=== PATIENT | male | born 2005 | race Caucasian/White ===

== ENCOUNTER 2025-04-22 12:07 | Emergency (ER) | payer OTHER, SELFPAY ==
--- NOTE | ~2025-04-22 | US_ITS ---
EXAMINATION: US ABDOMEN LIMITED CLINICAL INFORMATION: Right upper quadrant pain. COMPARISON: None available. TECHNIQUE: Real-time imaging of the right upper quadrant abdominal viscera. FINDINGS: GALLBLADDER: The gallbladder is moderately decompressed. Gallbladder wall is not thickened. There are no gallstones. COMMON BILE DUCT: Normal in caliber measuring 0.2 cm in diameter. US/US abdomen limited IMPRESSION: Moderately decompressed gallbladder. Electronically signed by: Casa Bailey MD 04/22/2025 03:07 PM EDT
--- NOTE | 2025-04-22 13:01 | ED_ITS ---
HPI - General Adult General Chief complaint: Nausea/Vomiting/Diarrhea Stated complaint: stomach pain Time Seen by Provider: 04/22/25 18:45 Source: patient Limitations: no limitations History of Present Illness ED Provider: Desiree Flores PA-C HPI narrative: 19-year-old male presents with ongoing nausea vomiting diarrhea for a year. Pain over right upper quadrant, worse with the eating, denies fever. Denies recent travel, hospitalization, use of antibiotics. The patient has yet to see a universal winding machine operator for his symptoms. No fevers. Related Data Previous Rx's ?Medication ?Instructions ?Recorded sucralfate 100 mg/mL oral 10 ml PO QID PRN indigestion #300 04/22/25 suspension (Carafate) mL Allergies Allergy/AdvReac Type Severity Reaction Status Date / Time No Known Allergies Allergy Verified 04/22/25 13:03 Review of Systems 2 Review of Systems: Yes all other systems are reviewed and are negative Constitutional: Constitutional: Denies fatigue and Denies fever(s) Cardiovascular: Cardiovascular: Denies chest pain and Denies dyspnea Respiratory: Respiratory: Denies dyspnea Gastrointestinal: Gastrointestinal: Reports abdominal pain, Reports diarrhea, Reports nausea and Reports vomiting Endocrine: Endocrine: Denies fatigue PMFSH Past Medical History Attestation statement: The following information was validated with the patient. Social History Social History Smoked in Last 30 Days: No Use of substances other than those prescribed or required for medical reasons: No Advance Directives: No Advance Directives Information Provided: Yes Physical Exam ED Vital Signs: Vital Signs - 24 hr 04/22/25 13:02 04/22/25 18:28 04/22/25 20:16 Temperature 98.4 F 98.0 F 98.9 F Pulse Rate 87 71 76 Respiratory Rate 18 16 16 Blood Pressure 145/87 H 141/82 H 117/77 Pulse Oximetry 98 100 99 Oxygen Delivery Method Room Air Room Air Room Air BMI result Body Mass Index 19.7 Const Other: Alert Orientation/consciousness: patient oriented x3 Resp Effort & Inspection: normal respiratory effort Cardio Other: Normal peripheral perfusion GI Other: Soft nontender no guarding no distention Skin Other: Warm dry no rash Neuro General: patient oriented x3, gait normal, no focal motor deficits and CN's II- XI intact bilaterally Psych Other: Calm cooperative Course Course Course Narrative: RME, this is a rapid medical exam performed by Grady Chawla please refer to primary provider for complete H&P- 19-year-old male presents for evaluation of abdominal pain usually right-sided an upper. Symptoms started numbness 2 years ago. He reports associated nausea vomiting, diarrhea. Plan for labs, ultrasound of the right upper quadrant Medications Administered Discontinued Medications Generic Name Dose Route Start Last Admin Trade Name Annamaria PRN Reason Stop Dose Admin Sucralfate 1 gm 04/22/25 19:57 04/22/25 20:34 Sucralfate Oral Suspension 1 Gm/10 Ml Oral.Susp PO 04/22/25 19:58 1 gm ONCE ONE Administration Medical Decision Making Medical Decision Making MDM Narrative: 19-year-old male presents with ongoing nausea vomiting diarrhea for a year. Pain over right upper quadrant, worse with the eating, denies fever. Denies recent travel, hospitalization, use of antibiotics. The patient has yet to see a universal winding machine operator for his symptoms. No fevers. Problem: Chronic abdominal pain with diarrhea History: Per patient I have considered the following differential diagnoses: Biliary colic, cholecystitis, gastritis, pancreatitis, IBS, C diff, traveler's diarrhea, pancreatic enzyme insufficiency Plan: The patient is here with chronic symptoms. Given distribution of discomfort I have considered underlying biliary versus gastric etiology as cause for symptoms. Screening labs were obtained including an ultrasound of the right upper quadrant, everything is unremarkable including his LFTs. Sounds as if the patient has poorly controlled acid reflux, with the diarrhea, he needs further workup as an outpatient. He has no risk factors for traveler's diarrhea or C diff. I have independently reviewed the following tests: Labs: No leukocytosis, not anemic, no electrolyte are light abnormality noted , LFTs normal Abdominal ultrasound: FINDINGS: GALLBLADDER: The gallbladder is moderately decompressed. Gallbladder wall is not thickened. There are no gallstones. COMMON BILE DUCT: Normal in caliber measuring 0.2 cm in diameter. US/US abdomen limited IMPRESSION: Moderately decompressed gallbladder. Differential Diagnosis Differential Diagnoses: The differential diagnosis associated with the presentation includes See MDM Admission/Observation Consideration of admission/observation: Escalation of care including admission/observation considered Not applicable Lab Data [facility] Lab Attestation statement: I reviewed the patient's lab results. 04/22/25 13:50 04/22/25 13:50 Labs: Lab Results 04/22/25 Range/Units 13:50 WBC 5.7 (4.8-10.8) X10*3/uL RBC 4.86 (4.60-5.80) X10*6/uL Hgb 14.9 (14.0-18.0) g/dl Hct 43.2 (42.0-52.0) % MCV 88.9 (80.0-98.0) fL MCH 30.7 (27.0-33.0) pg MCHC 34.5 (31.0-36.0) g/dl RDW 12.3 (11.0-16.0) % Plt Count 220 (160-400) X10*3/uL MPV 9.5 (9.4-12.4) fL Immature Gran % (Auto) 0.2 (0.0-0.4) % Neut % (Auto) 66.0 (45-73) % Lymph % (Auto) 21.6 (20-40) % [place] % (Auto) 7.4 (2-11) % Eos % (Auto) 3.2 (0-4) % Baso % (Auto) 1.6 (0-2) % Lymph # (Auto) 1.2 (1.2-4.9) X10*3/uL [place] # (Auto) 0.4 (0.1-1.2) X10*3/uL Eos # (Auto) 0.2 (0.0-0.4) X10*3/uL Baso # (Auto) 0.1 (0.0-0.2) X10*3/uL Abs Immat Gran (auto) 0.01 (0.00-0.03) X10*3/uL Absolute Neuts (auto) 3.8 (2.0-8.3) x10*3/uL Absolute Nucleated RBC 0.000 (0.0-0.012) X10*3/uL Nucleated RBC % (auto) 0.0 (0.0-0.2) /100WBC Sodium 142 (135-145) mmol/L Potassium 4.2 (3.3-5.1) mmol/L Chloride 104 (96-108) mmol/L Carbon Dioxide 30 H (22-29) mmol/L Anion Gap 12 (12-20) BUN 8 L (9-16) mg/dL Creatinine 0.84 (0.5-1.4) mg/dL Estim Creat Clear Calc 115.4 Estimated GFR > 60 Random Glucose 85 (60-115) mg/dL Calcium 9.6 (8.4-10.2) mg/dL Total Bilirubin 0.3 (0.0-1.0) mg/dL AST 29 (5-37) U/L ALT 19 (0-40) U/L Alkaline Phosphatase 54 (39-117) U/L Total Protein 7.3 (6.5-8.0) g/dL Albumin 4.9 (3.5-5.0) g/dL Lipase 20 (8-78) U/L Radiology Impression Discussion of test interpretation with radiology: I have reviewed the radiologist's reading. Discharge Plan Discharge Clinical Impression: GERD (gastroesophageal reflux disease), Diarrhea Patient Disposition: Home, Self-Care Instructions: Diet for Stomach Ulcers and Gastritis (ED), GERD (Gastroesophageal Reflux Disease) (ED), Nutrition Tips for Relief of Diarrhea (ED) Additional Instructions: All of your screening labs were normal, the ultrasound of your upper abdomen was normal as well. Your symptoms could be secondary to poorly controlled acid reflux. See home care instructions. Use the Carafate as needed for upper abdominal discomfort. Some common food triggers for poorly controlled acid reflux are anything spicy and greasy, acidic, mint, anything carbonated, alcohol, caffeine. Do not eat 3 hours before bed. Eating smaller more frequent meals throughout the day can also help deter symptoms. In regard to the diarrhea, you need an outpatient workup to determine the cause of the chronic diarrhea. You need to establish primary care so you can get to the next steps, to see a universal winding machine operator. Prescriptions: New sucralfate [Carafate] 100 mg/mL suspension 10 ml PO QID PRN (Reason: indigestion) Qty: 300 0RF Rx Instructions: swish in mouth and swallow; use after food/drink Interventions: ED Discharge Assessment Last Done: 04/22/25 21:07 Discharge Date/Time: 04/22/25 21:08 Print Language: Kiswahili
[2025-04-22 13:02] VITALS: BP 145/87; PULSE 87; RESP 18; TEMP 36.9; O2SAT 98; BMI 19.7
[2025-04-22 13:54] LABS: MANUAL DIFF FLAG NO
[2025-04-22 13:56] LABS: Hematocrit 43.2 % (42.0-52.0); Hemoglobin 14.9 g/dl (14.0-18.0); Imm Gran Abs Auto 0.01 X10*3/uL (0.00-0.03); Imm Gran Pct Auto 0.2 % (0.0-0.4); Lymphocytes Absolute Auto 1.2 X10*3/uL (1.2-4.9); Mean Corpuscular HGB Conc 34.5 g/dl (31.0-36.0); Mean Corpuscular Hemoglobin 30.7 pg (27.0-33.0); Mean Corpuscular Volume 88.9 fL (80.0-98.0); NRBC Abs Auto 0.000 X10*3/uL (0.0-0.012); NRBC Pct Auto 0.0 /100WBC (0.0-0.2); Platelet Count 220 X10*3/uL (160-400); Red Blood Count 4.86 X10*6/uL (4.60-5.80); White Blood Count 5.7 X10*3/uL (4.8-10.8)
[2025-04-22 14:12] LABS: Alanine Aminotransferase 19 U/L (0-40); Albumin Level 4.9 g/dL (3.5-5.0); Alkaline Phosphatase 54 U/L (39-117); Anion Gap 12 (12-20); Aspartate Amino Transferase 29 U/L (5-37); Blood Urea Nitrogen 8 mg/dL (9-16); Calcium 9.6 mg/dL (8.4-10.2); Carbon Dioxide 30 mmol/L (22-29); Chloride 104 mmol/L (96-108); Creatinine Clr Calc Pharmacy 115.4; Estimated Glomerular Filt Rate > 60; Lipase 20 U/L (8-78); Potassium 4.2 mmol/L (3.3-5.1); Sodium 142 mmol/L (135-145); Total Protein 7.3 g/dL (6.5-8.0)
[2025-04-22 18:28] VITALS: BP 141/82; PULSE 71; RESP 16; TEMP 36.7; O2SAT 100
[2025-04-22 20:16] VITALS: BP 117/77; PULSE 76; RESP 16; TEMP 37.2; O2SAT 99
[2025-04-22] MEDS: Sucralfate Oral Suspension 1 GM/10 ML ORAL.SUSP PO (20:34)
[2025-04-22 21:07] VITALS: BP 117/77; PULSE 76; RESP 16; TEMP 37.2; O2SAT 99
== END 2025-04-22 21:08 | disposition home or self-care (01) ==
PROVIDERS: Physician Assistant; Emergency Provider Emergency Medicine
DX: R11.2 Nausea with vomiting, unspecified (principal); R19.7 Diarrhea, unspecified; K21.9 Gastro-esophageal reflux disease without esophagitis
CPT/HCPCS: 36415; 76705; 80053; 83690; 85025; 99284

== ENCOUNTER → 2025-04-22 13:02 | Outpatient (BNV) | payer OTHER, SELFPAY | PROVIDERS: Visit Provider Radiology Diagnostic Radiology | DX: K82.8 Other specified diseases of gallbladder (principal) | CPT/HCPCS: 76705 ==

== ENCOUNTER 2025-07-25 15:40 | Emergency (ER) | payer SELFPAY ==
--- NOTE | ~2025-07-25 | XR_ITS ---
CLINICAL HISTORY: pain 2 view chest x-ray. Comparison: None Findings: No consolidation. Heart size normal No acute fracture. Impression: Lungs are clear. This document has been electronically signed by: Panda Centeno MD on 07/25/2025 17:16:49
--- NOTE | 2025-07-25 15:43 | ECG_ITS ---
Test Reason : CHEST PAIN Blood Pressure : */* mmHG Vent. Rate : 93 BPM Atrial Rate : 93 BPM P-R Int : 106 ms QRS Dur : 84 ms QT Int : 364 ms P-R-T Axes : 58 81 70 degrees QTcB Int : 452 ms Sinus rhythm with short CA Otherwise normal ECG No previous ECGs available Referred By: Bob Chawla Electronically Signed By: JEFF CABRAL
[2025-07-25 15:55] VITALS: BP 130/78; PULSE 90; RESP 18; TEMP 36.4; O2SAT 99; BMI 19.8
--- NOTE | 2025-07-25 15:55 | ED_ITS ---
HPI - General Adult General Chief complaint: Chest Pain Stated complaint: chest pain Time Seen by Provider: 07/25/25 17:04 Source: patient and other (patient's girlfriend) Mode of arrival: ambulatory Limitations: no limitations History of Present Illness ED Provider: Jeanna Hooks PA-C HPI narrative: Patient is a 19 year old assigned male at with no reported medical history presenting to the emergency department today with chest pain and shortness of breath. Patient states that he is having central chest pain with now resolved shortness of breath. Patient states that when he woke up, he had chest pain and some shortness of breath. Patient states that the shortness of breath has now resolved but the chest pain continues. Patient denies any other complaints at this time. Related Data Previous Rx's ?Medication ?Instructions ?Recorded sucralfate 100 mg/mL oral 10 ml PO QID PRN indigestion #300 04/22/25 suspension (Carafate) mL Allergies Allergy/AdvReac Type Severity Reaction Status Date / Time No Known Allergies Allergy Verified 07/25/25 15:56 Review of Systems 2 Constitutional: Constitutional: Reports as per HPI Eyes: Eyes: Reports as per HPI ENT: Reports as per HPI Cardiovascular: Cardiovascular: Reports as per HPI Respiratory: Respiratory: Reports as per HPI Gastrointestinal: Gastrointestinal: Reports as per HPI Genitourinary: Genitourinary: Reports as per HPI Musculoskeletal: Musculoskeletal: Reports as per HPI Integumentary/Breasts: Skin/Breast: Reports as per HPI Neurologic: Reports as per HPI Psychiatric: Psychiatric: Reports as per HPI Endocrine: Endocrine: Reports as per HPI Hematologic/Lymphatic: Hematologic/Lymphatic: Reports as per HPI Allergic/Immunologic: Allergic/Immunologic: Reports as per HPI PMF Past Medical History Attestation statement: The following information was validated with the patient. (patient's girlfriend validated all information) Source: old records reviewed, nursing notes reviewed and other (patient's girlfriend provided additional history and confirmed the history provided by the patient. ) Social History Social History Alcohol intake: current Alcohol intake frequency: a few times a week Alcohol type: beer Smoked in Last 30 Days: Yes Use of substances other than those prescribed or required for medical reasons: No Advance Directives: No Advance Directives Information Provided: No Do you have a plan to hurt others: No Plan Physical Exam ED Vital Signs: Vital Signs - 24 hr 07/25/25 15:55 07/25/25 17:51 Temperature 97.5 F 97.8 F Pulse Rate 90 89 Respiratory Rate 18 18 Blood Pressure 130/78 Pulse Oximetry 99 100 Oxygen Delivery Method Room Air Room Air BMI result Body Mass Index 19.8 Const General: cooperative, no acute distress, alert and awake Nutritional Appearance: well nourished Orientation/consciousness: patient oriented x3 HENMT Head: Yes normal to inspection and Yes atraumatic Ears: hearing grossly normal bilaterally and external ears normal General nose exam: Normal external nose present, no nasal discharge noted and no epistaxis Face and sinus: Yes normal facial exam, No abrasion and No laceration Mouth: Normal oral and palatal mucosa present, no drooling and no muffled voice Eyes General: appearance normal, both eyes and all related structures Periorbital: periorbital findings normal Eyelids: Yes eyelids normal Conjunctivae: conjunctivae normal Pupils: Equal, round and reactive pupils present EOM: EOMs intact bilaterally Neck Neck: Yes normal visual inspection and Yes full ROM Resp Effort & Inspection: normal respiratory effort and able to speak in complete sentences Neuro General: patient oriented x3, moves all extremities and CN's II-XI intact bilaterally Cranial nerves: Yes Equal, round and reactive pupils present Cognition (Neuro): normal cognition Extrem General: Yes normal to inspection, Yes full ROM and Yes capillary refill normal Psych Appearance: grossly normal Mental Status: mental status grossly normal Affect: normal affect Attitude: cooperative Thought process: Normal thought process present Thought content: Normal thought content present Insight: Good insight present (Psych) Course Course Course Narrative: RME, this is a rapid medical exam performed by Grady Chawla please refer to primary provider for complete H&P- 19 year old male presents for evaluation of chest pain. Plan for labs, ekg, chest x-ray. He is well appearing in trage Medications Administered Discontinued Medications Generic Name Dose Route Start Last Admin Trade Name Freq PRN Reason Stop Dose Admin Ketorolac Tromethamine 15 mg 07/25/25 17:24 07/25/25 17:33 Ketorolac Tromethamine 15 Mg/Ml Vial IM 07/25/25 17:25 15 mg ONCE ONE Administration Medical Decision Making Medical Decision Making [facility] Narrative: Patient is a 19 year old assigned male at with no reported medical history presenting to the emergency department today with chest pain and shortness of breath. Patient's physical exam was as noted in the physical exam portion of this note. Patient's blood work was unremarkable. Patient's urine showed no acute process. Patient's EKG showed no evidence of acute ischemia but did show possible LVH. Patient's chest x-ray showed no acute process. I explained my physical exam findings as well as all test results to the patient and the patient's girlfriend. I answered all questions asked by the patient and the patient's girlfriend. I stressed the importance of the patient taking his medication as directed (either prescribed or as the over the counter packaging recommends). I stressed the importance of the patient following up with his primary care provider and a oil house attendant. I stressed the importance of the patient returning to the emergency department immediately if his symptoms were to worsen or if he were to develop any dizziness, shortness of breath, difficulty breathing, chest pain, blurry vision, loss of vision, nausea, vomiting, abdominal pain, fever, chills, back pain, or any other complaints. Patient and the patient's girlfriend verbalized agreement and understanding with this treatment plan and discharge. Differential Diagnosis Differential Diagnoses: The differential diagnosis associated with the presentation includes Chest pain NSTEMI STEMI Pleurisy Chest wall pain Costochondritis Admission/Observation Consideration of admission/observation: Escalation of care including admission/observation considered Patient would have been admitted to the hospital had his work up had any findings where hospital admission was appropriate and his clinical presentation warranted hospital admission. Lab Data [facility] Lab Attestation statement: I reviewed the patient's lab results. My interpretation of these results are in the MDM Rationale portion of this note. 07/25/25 16:05 07/25/25 16:05 Labs: Lab Results 07/25/25 07/25/25 Range/Units 16:05 17:26 WBC 8.5 (4.8-10.8) X10*3/uL RBC 5.04 (4.60-5.80) X10*6/uL Hgb 14.7 (14.0-18.0) g/dl Hct 43.1 (42.0-52.0) % MCV 85.5 (80.0-98.0) fL MCH 29.2 (27.0-33.0) pg MCHC 34.1 (31.0-36.0) g/dl RDW 12.5 (11.0-16.0) % Plt Count 250 (160-400) X10*3/uL MPV 9.7 (9.4-12.4) fL Immature Gran % (Auto) 0.2 (0.0-0.4) % Neut % (Auto) 64.0 (45-73) % Lymph % (Auto) 23.8 (20-40) % [place] % (Auto) 7.1 (2-11) % Eos % (Auto) 3.2 (0-4) % Baso % (Auto) 1.7 (0-2) % Lymph # (Auto) 2.0 (1.2-4.9) X10*3/uL [place] # (Auto) 0.6 (0.1-1.2) X10*3/uL Eos # (Auto) 0.3 (0.0-0.4) X10*3/uL Baso # (Auto) 0.1 (0.0-0.2) X10*3/uL Abs Immat Gran (auto) 0.02 (0.00-0.03) X10*3/uL Absolute Neuts (auto) 5.4 (2.0-8.3) x10*3/uL Absolute Nucleated RBC 0.000 (0.0-0.012) X10*3/uL Nucleated RBC % (auto) 0.0 (0.0-0.2) /100WBC Sodium 139 (135-145) mmol/L Potassium 4.4 (3.3-5.1) mmol/L Chloride 105 (96-108) mmol/L Carbon Dioxide 24 (22-29) mmol/L Anion Gap 14 (12-20) BUN 16 (9-16) mg/dL Creatinine 0.99 (0.5-1.4) mg/dL Estim Creat Clear Calc 98.4 Estimated GFR > 60 Random Glucose 92 (60-115) mg/dL Calcium 9.3 (8.4-10.2) mg/dL Troponin I High Sens < 2.7 (<3.5-35.0) ng/L Influenza Type A (PCR) NEGATIVE (Negative) Influenza Type B (PCR) NEGATIVE (Negative) RSV RNA Qual (PCR) NEGATIVE (Negative) SARS-CoV-2 RNA (RT-PCR) NEGATIVE (Negative) Independent Interpretation I performed an independent interpretation of an: EKG and Plain X-Ray Interpretation: My interpretation is in agreement with the radiologist's impression of this imaging study as written below. CLINICAL HISTORY: pain 2 view chest x-ray. Comparison: None Findings: No consolidation. Heart size normal No acute fracture. Impression: Lungs are clear. This document has been electronically signed by: Panda Centeno MD on 07/25/2025 17:16:49 Dictated By: Panda Centeno MD Signed By: Electronically signed by Panda Centeno MD 07/25/25 1717 I independently interpreted this EKG and am in agreement with the below findings: Vent. Rate: 93 BPM Atrial Rate: 93 BPM P-R Int: 106 ms QRS Dur: 84 ms QT Int: 364 ms P-R-T Axes: 58 81 70 degrees QTcB Int: 452 ms Sinus rhythm with short [place] No previous ECGs available DD/ 1546 Radiology Impression Discussion of test interpretation with radiology: I have reviewed the radiologist's reading. Independent Historian Clinical information obtained from an independent historian. History obtained from or confirmed by: Other (patient's girlfriend provided additional history and confirmed the history provided by the patient. ) Discharge Plan Discharge Clinical Impression: Atypical chest pain Patient Disposition: Home, Self-Care Instructions: Chest Pain (DC) Additional Instructions: Your work up today was reassuring there is no EMERGENT cause for you symptoms. Your EKG showed possible evidence of left ventricular hypertrophy. While this does not need emergent intervention or medical admission - you do need to follow up with a Trial Lawyer and potentially get a comprehensive echocardiogram. Avoid strenuous activity / exercise / sports and caffeine intake. IF you are prescribed home medications and/or you are taking over the counter medications at home - it is very important you continue to do so as prescribed / directed unless told otherwise by a healthcare provider. Follow up with your primary care provider. Do your best to stay well hydrated and rest. Return to the emergency department immediately if your symptoms worsen or if you develop any numbness, tingling, dizziness, shortness of breath, difficulty breathing, chest pain, blurry vision, loss of vision, nausea, vomiting, abdominal pain, fever, chills, back pain, or any other complaints. L If you do not have a primary care provider - call any of the below numbers to establish and follow up with a primary care provider. [facility] [place] [phone] [place] [address], [address] [facility] [place] [phone] [place] [address], [address] [facility], [address] [facility] [place] [phone] [place] [address], [address] [facility], [address] [facility] [place] [phone] [place] [address] [facility], [address] [facility] [phone] [address] [facility], [address] Please see the information below about our Patient Portal. If you are not yet enrolled in the [facility] Patient Portal, you will receive an enrollment email invitation following your visit to any [facility] setting. You may also self-enroll in the Patient Portal by visiting our website: [email or web address] The following information is required to access the Patient Portal: - Your [facility] [place] Number - Your personal home email address (must match what is in your electronic medical record, Registration staff can assist with this) - Name - Date of Capabilities of the Patient Portal: - Message some providers - View upcoming appointments - Access your health summary, medical history, and visit history - View current conditions and allergies - View procedure and lab results - View your medications, including guidelines, side effects, and precautions - Complete pre-appointment questionnaires requested by your provider - Ready summary reports of your office visits and procedures To access the Patient Portal Mobile [employer], follow these directions: - Search [employer] in the [employer] Store or [employer] Store - Download the [employer]erson - Search for [facility] - Enter your login/password Prescriptions: No Action sucralfate [Carafate] 100 mg/mL suspension 10 ml PO QID PRN (Reason: indigestion) Qty: 300 0RF Rx Instructions: swish in mouth and swallow; use after food/drink Referrals: [facility] [Provider Group] Referral Note: Call to establish and follow up with the cardiology team. Stand Alone Forms: Work/School Release Discharge Date/Time: 07/25/25 17:52 Print Language: French
[2025-07-25 16:09] LABS: MANUAL DIFF FLAG NO
[2025-07-25 16:15] LABS: Hematocrit 43.1 % (42.0-52.0); Hemoglobin 14.7 g/dl (14.0-18.0); Imm Gran Abs Auto 0.02 X10*3/uL (0.00-0.03); Imm Gran Pct Auto 0.2 % (0.0-0.4); Lymphocytes Absolute Auto 2.0 X10*3/uL (1.2-4.9); Mean Corpuscular HGB Conc 34.1 g/dl (31.0-36.0); Mean Corpuscular Hemoglobin 29.2 pg (27.0-33.0); Mean Corpuscular Volume 85.5 fL (80.0-98.0); NRBC Abs Auto 0.000 X10*3/uL (0.0-0.012); NRBC Pct Auto 0.0 /100WBC (0.0-0.2); Platelet Count 250 X10*3/uL (160-400); Red Blood Count 5.04 X10*6/uL (4.60-5.80); White Blood Count 8.5 X10*3/uL (4.8-10.8)
[2025-07-25 16:33] LABS: Anion Gap 14 (12-20); Blood Urea Nitrogen 16 mg/dL (9-16); Calcium 9.3 mg/dL (8.4-10.2); Carbon Dioxide 24 mmol/L (22-29); Chloride 105 mmol/L (96-108); Creatinine Clr Calc Pharmacy 98.4; Estimated Glomerular Filt Rate > 60; Potassium 4.4 mmol/L (3.3-5.1); Sodium 139 mmol/L (135-145)
--- OUTSIDE RECORDS SUMMARY | 2025-07-25 16:33 | XMS_ITS | Encounter Summary ---
Author Organization [facility] Address [address] [place] [address] Phone Care Team Providers Care Demand Planning Analyst Name Role Phone Gabrielle Menezes MD Primary Care Provider [phone] Reason for Visit * Reason Onset Date Comments [facility] face to face at sick [facility]ia[facility] 08/11/2019 Encounter Details Date Type Department Care Team (Late st Contact Info) Description 08/11/2019 Patient Outreach Pediatric And Adolescent Medicine - [address] [address] Hannah Jaramillo, SUSHANT [facility] face to face at sick malia't Social History Tobacco Use Types Packs/Day Years Used Date Smoking Tobacco: Never Smokeless Tobacco: Never Alcohol Use Standard Drinks/Week Comments No 0 (1 standard drink = 0.6 oz pur e alcohol) Hunger/Food Answer Date Recorded In the last 12 months, did y ou or your family ever eat less than you felt you should because there wasn't enough money for food? No 02/21/2019 Stable Housing Answer Date Recorded Are you worried that in the next 2 months you may not have stable housing? No 02/21/2019 Transportation Concerns Answer Date Rec orded In the last 12 months, have you or your family ever had to go without healthcare because you didn't have a way to get there? No 02/21/2019 Hazards in Home Answer Date Recorded Think about the place you li ve. Do you have problems with any of the following? Pests (mice or roaches), mold, no/not working smoke detectors, water leaks, no window guards. No 2018 Financing Utilities Answer Date Recorde d In the last 12 months, has t he electric, gas, oil, or water company threatened to shut off your services in your home? No 02/21/2019 Safety at Home Answer Date Recorded Are you or your family worried about feeling saf e in your home? No 02/21/2019 Outside Support Answer Date Recorded Do you feel that you need mo re support from other people or programs to help you care for yourself or your family? No 02/21/2019 Understanding Health Concerns Answer Da te Recorded Do you need help understandi ng your or your child's healthcare needs (diagnosis, medications, plan, etc.)? No 02/21/2019 Financing Health Concerns Answer Date R ecorded In the last 12 months, was t here a time when your child needed to see a doctor or get medications or supplies but could not because of cost? No 02/21/2019 Missing School or Work Answer Date Akash rded Did you or your child miss s chool or work because of a health problem that could have been avoided? No 02/21/2019 Sex and Gender Information Value Date Recorded Sex Assigned at Not on file Legal Sex Male 6:26 PM EDT Gender Identity Male 06/26/2023 1:57 PM EDT Sexual Orientation Straight 03/09/2020 4: 25 PM EDT documented as of this encounter Plan of Treatment Not on file documented as of this encounter Visit Diagnoses Not on filedocumented in this encounter Care Teams Demand Planning Analyst Relationship Specialty Start Date End Date Gabrielle Menezes MD [address] [place] [address] PCP - General 01/09/18 documented as of this encounter
--- OUTSIDE RECORDS SUMMARY | 2025-07-25 16:33 | XMS_ITS | Encounter Summary ---
Author Organization [facility] Address [address] [place] [address] Phone Care Team Providers Care Concrete Swimming Pool Installer Name Role Phone Gabrielle Menezes MD Primary Care Provider [phone] Reason for Visit * Reason Comments Med Refill Encounter Details Date Type Department Care Team (Late st Contact Info) Description 04/27/2022 Refill Pediatric And Adolescent Medicine - [address] [phone] Gabrielle Menezes MD [address] [place] [address] Seasonal allergic rhinitis due to pollen Social History Tobacco Use Types Packs/Day Years [...] documented as of this encounter Visit Diagnoses Diagnosis Seasonal allergic rhinitis due to pollen documented in this encounter Care Teams Concrete Swimming Pool Installer Relationship Specialty Start Date End Date Gabrielle Menezes MD [address] [place] [address] [place] [address] PCP - General 01/09/18 documented as of this encounter
--- OUTSIDE RECORDS SUMMARY | 2025-07-25 16:33 | XMS_ITS | Encounter Summary ---
Author Organization [facility] Address [address] [place] [address] Phone Care Team Providers Care Cost Estimating Manager Name Role Phone Gabrielle Menezes MD Primary Care Provider [phone] Reason for Visit * Reason Comments Med Refill Encounter Details Date Type Department Care Team (Late st Contact Info) Description 05/20/2019 Refill Pediatric And Adolescent Medicine - [address] [phone] [place] [address] [place] [address] Seasonal allergic rhinitis due to pollen Social [...] PM EDT documented as of this encounter Miscellaneous Notes * Telephone Encounter - Wilma Feliciano RN - 05/20/2019 2:07 PM EDT Pt's last wcc was 02/21/19 with [facility], there are no future appt scheduled at this time. Certirizine 10 mg last prescribed 02/01/19 #30 tablets with 1 refill Refill for certirizine 10 mg sent to pharmacy today #30 tablets with 1 refill. documented in this encounter Plan of Treatment Not on file documented as of this encounter Visit Diagnoses Diagnosis Seasonal allergic rhinitis due to pollen documented in this encounter Care Teams Cost Estimating Manager Relationship Specialty Start Date End Date Gabrielle Menezes MD [address] [place] [address] [place] [address] PCP - General 01/09/18 documented as of this encounter
--- OUTSIDE RECORDS SUMMARY | 2025-07-25 16:33 | XMS_ITS | Clinical Summary ---
Author Organization [facility] Address [address] [place] [address] Phone Care Team Providers Care Vegetables Cook Name Role Phone Gabrielle Menezes MD Primary Care Provider [phone] Allergies Active Allergy Reactions Criticality Noted Date Comments Environmental seasonal Medications cetirizine 10 MG tabletIndication s:Seasonal allergic rhinitis due to pollen Take 1 tablet (10 mg total) by mouth daily. 30 tablet 1 0 Active Additional Information Patient not taking.Reported on 09/07/2023 fluticasone-salm eterol (Advair HFA) 115-21 MCG/ACT inhalerIndicatio ns:Mild intermittent asthma without complication Inhale 2 puffs every 12 (twelve) hours. Rinse mouth with water after use, do not swallow. 1 Units 5 2 Active cloNIDine 0.1 MG tablet Take 0.1 mg by mouth as needed for high blood pressure. Active ProAir HFA 108 (90 Base) MCG/ACT inhalerIndicatio ns:Mild intermittent asthma without complication INHALE 2 PUFFS EVERY 4 HOURS NEEDED FOR WHEEZING OR SHORTNESS OF BREATH 1 Units 1 2 Active Additional Information Patient not taking.Reported on 09/07/2023 hydrOXYzine 25 MG tablet Take 25 mg by mouth. 2 Active montelukast (Singulair) 10 MG tabletIndication s:Seasonal allergic rhinitis due to pollen Take 1 tablet (10 mg total) by mouth nightly. 90 tablet 1 2 Active Additional Information Patient not taking.Reported on 09/07/2023 Active Problems Patient Care Coordination No te Formatting of this note migh t be different from the original. Cambering Machine Operator - HEIDI Smith. Last appt 02/11/18 F/U [facility]- Billy Warner Gallo next appt 08/30/20 [facility]- Last appt 12/30/18 NO SHOW GI- appt 10/2019 NO SHOW last appt 12/17/19 VV appt no other appts scheduled Dental: [facility] Dental Q 6 mo. Problem Noted Date Diagnosed Date Substance use 09/07/2023 Failed vision screen 12/16/2021 Overview (12/16/2021): Thinks he last saw them 2 years ago (2019?) Failed vision screen in Left eye. Back to eye MD 12/2021 Assessment & Plan (12/16/2021 4:19 PM EDT): Failed vision screen in Left eye. Back to eye MD 12/2021 Elevated blood pressure reading 12/16/2021 Assessment & Plan (12/16/2021 4:52 PM EDT): Refer to cardiology History of COVID-19 11/29/2021 Overview (12/16/2021): Mild illness. Complaining of SOB, palpitations, dizziness. NOT cleared. + FHx cardiac issues. Referred to cardiology. Assessment & Plan (12/16/2021 4:13 PM EDT): Mild illness. Complaining of SOB, palpitations, dizziness. NOT cleared. + FHx cardiac issues. Referred to cardiology. Current moderate episode of major depressive disorder without prior episode 10/28/2021 Overview (10/28/2021): Had been seeing Dr. Vickey Diaz 10/2021: Admitted to [facility] for the 2nd time. Ingestion of ibuprofen, omeprazole, melatonin. Not intending to overdose/not suicidal. 10/2021: On fluoxetine 30 mg. We will bridge until he has stable psychiatrist care through [facility]. Intake today. Assessment & Plan (11/16/2021 6:57 PM EDT): F/u with med provider as planned next week. If something happens with that appointment, we can bridge meds if necessary. PTSD (post-traumatic stress disorder) 10/28/2021 Overview (10/28/2021): From trauma. Had been seeing Dr. Vickey Diaz. 10/2021: Has intake at [facility] Anxiety 05/06/2021 Overview (10/28/2021): Had been seeing Dr. Vickey Diaz. Admitted to [facility] for the 2nd time. Ingestion of ibuprofen, omeprazole, melatonin. Not intending to overdose/not suicidal. 10/2021: On fluoxetine 30 mg. We will bridge until he has stable psychiatrist care through [facility]. Intake today. Assessment & Plan (10/28/2021 10:10 AM EST): Admitted to [facility] for the 2nd time. Ingestion of ibuprofen, omeprazole, melatonin. Not intending to overdose/not suicidal. 10/2021: On fluoxetine 30 mg. We will bridge until he has stable psychiatrist care through [facility]. Intake today. Assessment & Plan (05/06/2021 3:28 PM EDT): Get back into see Dr. Diaz Sleeping difficulty 05/06/2021 Dysthymia 07/18/2017 Overview (05/06/2021): Depression (311) Onset: 07/18/2017 Added by: Jane Vee 11/03/2020 multiple no shows for appointments with Billy Ovalle [facility] 05/2021: it was a short-term thing . Switched to Dr. Vickey Diaz. Not seeing anymore. No medication. Assessment & Plan (05/06/2021 3:28 PM EDT): Back to Dr. Diaz. Mild intermittent asthma without complication Overview (12/16/2021): mild intermittent asthma, uncomplicated (493.00) Onset: 02/13/2017 Added by: Gabrielle Menezes 05/2021: ACT 25. Uses albuterol VERY infrequently. Last used spring 2020. Used to be on singulair, but had a rash. Stopped using. [address]: ACT Score: 23 This score suggests that asthma symptoms are well controlled. Assessment & Plan (02/21/2019 4:06 PM EDT): stable Assessment & Plan (08/28/2018 5:43 PM EST): Provided sample of Advair 115/21 today for use 2puffs BID until his regular Symbicort approved through [facility] or changed to a preferred agent (-try to send Advair 115 today instead) Assessment & Plan (02/19/2018 2:39 PM EDT): Asthma currently stable (had been on steroids last month, doing well currently). States he is taking symbicort and montelukast currently and not needing other rescue inhalers currently. ACT 23 Resolved Problems Problem Noted Date Diagnosed Date Resolved Date Ingestion of unknown medication 10/28/2021 12/16/2021 Overview (10/28/2021): Ingestion of ibuprofen, omeprazole, melatonin ( so I could sleep ). Determined to NOT be suicidal. Assessment & Plan (10/28/2021 9:42 AM EST): Ingestion of ibuprofen, omeprazole, melatonin ( so I could sleep ). Determined to NOT be suicidal. Adjustment disorder 09/25/2019 07/23/20 Overview (03/10/2020): Therapy with Billy Ovalle. Assessment & Plan (03/09/2020 4:43 PM EDT): Followed by Billy for therapy. Going well. No current concerns re: mood/anxiety. Anorexia 03/14/2019 12/16/2021 Overview (03/19/2019): 03/14/19:etiology unclear at this time, with h/o STAYC, Depression, currently off SSRI- screening labs WNL except isolated bili 1.7 Assessment & Plan (03/10/2020 6:05 AM EDT): Issue has resolved. No medical or body image issues. Appetite has improved. Assessment & Plan (03/21/2019 2:36 PM EDT): SX greatly improved with return to PPI therapy, so would like to r/o H. Pylori infection Pt agrees to stool sample collection and GMA would like to bring directly to the lab. Weight loss 03/14/2019 12/16/2021 Overview (05/06/2021): History of difficulty gaining weight. Recent weight loss of 7# since last year, but based on his percentile, he should be around 122#, which would be a pal loss of 12#. History of taking prilosec. Asking for refill. Assessment & Plan (05/06/2021 3:40 PM EDT): History of difficulty gaining weight. Recent weight loss of 7# since last year, but based on his percentile, he should be around 122#, which would be a pal loss of 12#. History of taking prilosec. Asking for refill. Will hold off on refill for now until labs done and recheck completed. Also, advised to not take the appetite stimulant. Will get labs. Consider GI referral. Assessment & Plan (03/09/2020 4:43 PM EDT): Improved. Has gained 1 lb since January and 7 lbs since August. Appetite improved. Never had obvious abnormal symptoms. Assessment & Plan (03/21/2019 2:39 PM EDT): Wt stable since last week with initiation of PPI therapy and improved intake, with reassuring screening labs. Continue to encourage power packing, GMA to call if intake falters. Orthostatic dizziness 02/21/20192019 Assessment & Plan (03/09/2020 4:41 PM EDT): Has resolved Vegetarian diet 12/03/2018 02/21/2019 Child in welfare custody 08/28/2018 Overview (12/16/2021): Pt and his brother and sister in the care of grandmother. DCF has custody. GM due to get guardianship. Case is closed 2021 since he is now 16. Assessment & Plan (02/21/2019 4:06 PM EDT): Doing well with GM. Asthma with acute exacerbation 02/19/2018 02/19/2018 Overview (02/19/2018): Seen in ER 01/10/2018. KG Generalized anxiety disorder 09/14/2017 02/21/2019 Overview (02/19/2018): generalized anxiety disorder (300.02) Onset: 09/14/2017 Added by: Jane Vee Assessment & Plan (08/28/2018 5:39 PM EST): GMA reports dose has increased in the past 6 months to current 15 mg QD , (1.5 of the 10 mg tab GMA thinks) Immunizations Immunization Administration Dates Next Due COVID-19 Pfizer, monovalent, 12+ years 1 DTaP 5 03/04/2008, 6,07/20/2004,05/04,02/23/2004 HPV Vaccine 9 Valent 02/21/2019,02/19/2018 Hep A, ped/adol 04/22/2015,04/20/2014 Hep B, ped/adol 07/20/2004,02/23/2004,2003 Hib (PRP-T) 05/04/2005,07/20/2004,02/23/2004 IPV 03/04/2008, 4,05/04/2004,02/22 Influenza, injectable, quadr ivalent, preservative free 06/10/2021,05/08/2020,07/21/2019,06/04,09/01/2015,07/15/2014 Influenza, injectable, triva lent, preservative free 07/08/2013 MMR 03/04/2008,05/04/2005 Meningococcal B Trumenba 11/16/2021,05/06/2021 Meningococcal Conj (Menactra) MCV4P 03/09/2020,0 04/22/2015 Pneumococcal Conjugate 13-Valent 005,07/20/2004,05/04/2004,02/22 Tdap 04/22/2015 Varicella 03/04/2008,05/04/2005 Family History Medical History Relation Name Comments ADD / ADHD Brother Anxiety disorder Brother Substance abuse Father Asthma Maternal Grandmother Thyroid disease Maternal Grandmother Anxiety disorder Mother Asthma Mother Depression Mother Food allergies Mother Heart murmur Mother Substance abuse Mother Anxiety disorder Mother's Brother Asthma Mother's Brother Heart disease Mother's Brother when he ge ts too excited, his heart stops - has a pacemaker Irregular heart beat Mother's Brother may be tachycardia??? ADD / ADHD Sister Anxiety disorder Sister Relation Name Status Comments Brother Father Maternal Grandmother Mother Mother's Brother Sister Social History Tobacco Use Types Packs/Day Years [...] Orientation Straight 03/09/2020 4: 25 PM EDT Last Filed Vital Signs Vital Sign Reading Time Taken Comments Blood Pressure 112/68 09/07/2023 10:36 AM EST Pulse 100 09/07/2023 10:36 AM EST Temperature 36.7 C (98 F) 09/07/2023 10:36 AM EST Respiratory Rate 20 09/07/2023 10:36 AM EST Oxygen Saturation 98% 09/07/2023 10:36 AM EST Inhaled Oxygen Concentration - - Weight 56.4 kg (124 lb 6 oz) 09/07/2023 10:36 AM EST Height 171.9 cm (5' 7.68 ) 09/07/2023 10:[address] Body Mass Index 19.09 09/07/2023 10:36 AM EST Plan of Treatment Health Maintenance Due Date Last Done Comments Influenza Vaccines (#1) 2025 06/10/20, 05/08/2020, 07/21/2019, Additional history exists DTaP,Tdap,and Td Vaccines (7 - Td or Tdap) 04/22/2025 04/22/2015, 03/04/2008, 01/02/2006, Additional history exists COVID-19 Vaccine (2024- season) 2025 08/25/2021, 12/30/2020, 12/08/2020 Hepatitis B Vaccines Completed 07/20/2004, 02/23/2004, 2003 Pneumococcal Vaccine Aged Out 11/06/2004, 07/20/2004, 05/04/2004, Additional history exists No longer eligible based on patient's age to complete this topic HIB Vaccines Completed 05/04/2005, 07/04, 02/23/2004 IPV Vaccines Completed 03/04/2008, 07/04, 05/04/2004, Additional history exists MMR Vaccines Completed 03/04/2008, 05/04/2005 Varicella Vaccines Completed 03/04/2008, 05/04/2005 Hepatitis A Vaccines Completed 04/22/2015, 04/20/20 14 HPV Vaccines Completed 02/21/2019, 02/19/2018 Meningococcal Vaccine Completed 03/09/2020, 015 Men B Vaccine Completed 11/16/2021, 05/06/2021 Insurance [facility] Care Teams Vegetables Cook Relationship Specialty Start Date End Date Gabrielle Menezes MD [address] [place] [address] [facility] [address] [facility] - General 01/09/18
--- OUTSIDE RECORDS SUMMARY | 2025-07-25 16:34 | XMS_ITS | Encounter Summary ---
Author Organization [facility] Address [address] [place] [address] Phone Care Team Providers Care Reimbursement Specialist Name Role Phone Gabrielle Menezes MD Primary Care Provider [phone] Encounter Details Date Type Department Care Team (Late st Contact Info) Description 04/20/2014 Conversion Encounter Pediatric And Adolescent Medicine [facility] [address] [place] [address] [place] [address] Social History Tobacco Use Types Packs/Day Years Used Date Smoking Tobacco: Never Assessed Sex and Gender Information Value Date Recorded Sex Assigned at Not on file Legal Sex Male 6:26 PM EDT Gender Identity Male 06/26/2023 1:57 PM EDT Sexual Orientation Straight 03/09/2020 4: 25 PM EDT documented as of this encounter Plan of Treatment Not on file documented as of this encounter Visit Diagnoses Not on filedocumented in this encounter Care Teams Reimbursement Specialist Relationship Specialty Start Date End Date Gabrielle Menezes MD [address] [place] [address] PCP - General 01/09/18 documented as of this encounter
--- OUTSIDE RECORDS SUMMARY | 2025-07-25 16:34 | XMS_ITS | Encounter Summary ---
Author Organization [facility] Address [address] [place] [address] Phone Care Team Providers Care Forest Aide Name Role Phone Gabrielle Menezes MD Primary Care Provider [phone] Reason for Visit * Reason Comments Med Refill Encounter Details Date Type Department Care Team (Late st Contact Info) Description 10/18/2021 Refill Pediatric And Adolescent Medicine - [address] [address] [place] [address] [place] [address] Mild intermittent asthma without complication Social History Tobacco Use Types Packs/Day Years [...] as of this encounter Visit Diagnoses Diagnosis Mild intermittent asthma without complication documented in this encounter Care Teams Forest Aide Relationship Specialty Start Date End Date Gabrielle Menezes MD [address] [place] [address] PCP - General 01/09/18 documented as of this encounter
--- OUTSIDE RECORDS SUMMARY | 2025-07-25 16:34 | XMS_ITS | Encounter Summary ---
Author Organization [facility] Address [address] [place] [address] Phone Care Team Providers Care Business Practices Supervisor Name Role Phone Gabrielle Menezes MD Primary Care Provider [phone] Reason for Visit * Reason Comments Med Refill Encounter Details Date Type Department Care Team (Late st Contact Info) Description 02/01/2019 Refill Pediatric And Adolescent Medicine - [address] [address] Gabrielle Menezes MD [address] [place] [address] Seasonal allergic rhinitis due to pollen (Primary Dx) Social History Tobacco Use Types Packs/Day Years Used Date Smoking Tobacco: Never Smokeless Tobacco: Never Alcohol Use Standard Drinks/Week Comments No 0 (1 standard drink = 0.6 oz pur e alcohol) Sex and Gender Information Value Date Recorded Sex Assigned at Not on file Legal Sex Male 6:26 PM EDT Gender Identity Male 06/26/2023 1:57 PM EDT Sexual Orientation Straight 03/09/2020 4: 25 PM EDT documented as of this encounter Plan of Treatment Not on file documented as of this encounter Visit Diagnoses Diagnosis Seasonal allergic rhinitis due to pollen- Primary documented in this encounter Care Teams Business Practices Supervisor Relationship Specialty Start Date End Date Gabrielle Menezes MD [address] [place] [address] PCP - General 01/09/18 documented as of this encounter
--- OUTSIDE RECORDS SUMMARY | 2025-07-25 16:34 | XMS_ITS | Encounter Summary ---
Author Organization [facility] Address [address] [place] [address] Phone Care Team Providers Care Landscape Crew Member Name Role Phone Gabrielle Menezes MD Primary Care Provider [phone] Reason for Visit * Reason Comments Med Refill Encounter Details Date Type Department Care Team (Late st Contact Info) Description 02/03/2019 Refill Pediatric And Adolescent [facility] [address] [place] [address] Gabrielle Menezes MD [address] [place] [address] Moderate persistent asthma without complication Social History Tobacco Use [...] as of this encounter Visit Diagnoses Diagnosis Moderate persistent asthma without complication documented in this encounter Care Teams Landscape Crew Member Relationship Specialty Start Date End Date Gabrielle Menezes MD [address] [place] [address] PCP - General 01/09/18 documented as of this encounter
--- OUTSIDE RECORDS SUMMARY | 2025-07-25 16:34 | XMS_ITS | Encounter Summary ---
Author Organization [facility] Address [address] [place] [address] Phone Care Team Providers Care It Investment/Portfolio Manager Name Role Phone Gabrielle Menezes MD Primary Care Provider Reason for Visit * Reason Onset Date Comments Med Refill 01/21/2020 Med Refill 01/27/2020 Encounter Details Date Type Department Care Team (Late st Contact Info) Description 01/21/2020 Refill Pediatric And Adolescent Medicine [facility] [address] [place] [address] Gabrielle Menezes MD [address] [place], [place] [phone] Seasonal allergic rhinitis due to pollen Social [...] pollen documented in this encounter Care Teams It Investment/Portfolio Manager Relationship Specialty Start Date End Date Gabrielle Menezes MD [address] [place] [address] [place] [address] PCP - General 01/09/18 documented as of this encounter
--- OUTSIDE RECORDS SUMMARY | 2025-07-25 16:34 | XMS_ITS | Encounter Summary ---
Author Organization [facility] Address [address] [place] [address] Phone Care Team Providers Care Power Screwdriver Operator Name Role Phone Gabrielle Menezes MD Primary Care Provider Reason for Visit * Reason Comments Med Refill Encounter Details Date Type Department Care Team (Late st Contact Info) Description 09/17/2022 Refill Pediatric And Adolescent Medicine - [address] [phone] [place] [address] [place] [address] Mild intermittent asthma without complication Social History [...] complication documented in this encounter Care Teams Power Screwdriver Operator Relationship Specialty Start Date End Date Gabrielle Menezes MD [address] [place] [address] PCP - General 01/09/18 documented as of this encounter
--- OUTSIDE RECORDS SUMMARY | 2025-07-25 16:34 | XMS_ITS | Encounter Summary ---
Author Organization [facility]' Address [address] [place] [id number] Phone Care Team Providers Care Sales Marketing Coordinator Name Role Phone Gabrielle Menezes MD Primary Care Provider [phone] Reason for Visit * Reason Comments Med Refill Encounter Details Date Type Department Care Team (Late st Contact Info) Description 01/06/2019 Refill [facility] - [address] [id number] Gabrielle Menezes MD [address] [place] [address] Mild persistent asthma, unspecified whether complicated Social History Tobacco Use Types Packs/Day Years [...] encounter Miscellaneous Notes * Telephone Encounter - Lee Ann Thapa LPN - 01/07/2019 3:42 PM EDT E-request for refill [email or web address]. [facility] 02/21/19 with KD. Refill sent per protocol. documented in this encounter Plan of Treatment Not on file documented as of this encounter Visit Diagnoses Diagnosis Mild persistent asthma, unspecified whether complicated documented in this encounter Care Teams Sales Marketing Coordinator Relationship Specialty Start Date End Date Gabrielle Menezes MD [address] [facility] [place] [address] PCP - General 01/09/18 documented as of this encounter
[2025-07-25 16:37] LABS: Troponin-I High Sensitivity < 2.7 ng/L (<3.5-35.0)
--- NOTE | 2025-07-25 17:11 | PC.NURSE ---
Patient presents to the ED with chest pain when waking up this morning. Patient states pain is sharp and radiated to left upper shoulder. 5/10 pain at the moment. VSS. HR 102. Labs ordered, CXR and EKG.
[2025-07-25 17:13] VITALS: PULSE 102
[2025-07-25 17:51] VITALS: PULSE 89; RESP 18; TEMP 36.6; O2SAT 100
[2025-07-25 18:08] LABS: Resp Syncy Virus RNA Qual PCR NEGATIVE (Negative); SARS COV2 PCR INHOUSE NEGATIVE (Negative)
== END 2025-07-25 17:52 | disposition home or self-care (01) ==
PROVIDERS: Physician Assistant; Physician Assistant Medical; Emergency Provider Emergency Medicine
DX: R07.89 Other chest pain (principal)
CPT/HCPCS: 36415; 71046; 80048; 84484; 85025; 87637; 90471; 93005; 99284; 99285; J1885

== ENCOUNTER → 2025-07-25 15:43 | Outpatient (BNV) | payer OTHER, SELFPAY | PROVIDERS: Emergency Provider Emergency Medicine; Visit Provider Internal Medicine | DX: R07.9 Chest pain, unspecified (principal) | CPT/HCPCS: 93010 ==

== ENCOUNTER → 2025-07-25 15:56 | Outpatient (BNV) | payer OTHER, SELFPAY | PROVIDERS: Emergency Provider Emergency Medicine; Visit Provider Radiology Diagnostic Radiology | DX: R07.9 Chest pain, unspecified (principal) | CPT/HCPCS: 71046 ==